=== PATIENT | female | born 1995 | race Caucasian/White ===

== ENCOUNTER 2018-07-31 16:39 | Emergency (ER) | payer OTHER ==
[2018-07-31] MEDS: IBUPROFEN 600 MG TAB PO (17:48)
[2018-07-31] MEDS: METHOCARBAMOL 750 MG TAB PO (17:48)
== END 2018-07-31 18:26 | disposition home or self-care (01) ==
LOC: M ED 16:39
DX: S16.1XXA Strain of muscle, fascia and tendon at neck level, initial encounter (principal); V49.49XA Driver injured in collision with other motor vehicles in traffic accident, initial encounter; Y92.410 Unspecified street and highway as the place of occurrence of the external cause; R51 Headache; Z79.899 Other long term (current) drug therapy
CPT/HCPCS: 99283